=== PATIENT | male | born 1970 | race African-American/Black ===

== ENCOUNTER 2018-01-10 20:46 | Emergency (ER) | payer SELFPAY ==
[2018-01-10] MEDS ORDERED: HYDROcodone/Acetaminophen 5/325 mg Tablet ONE (21:44)
== END 2018-01-10 21:49 | disposition home or self-care (01) ==
LOC: SCSER 20:46
DX: L02.416 Cutaneous abscess of left lower limb (principal); Z71.6 Tobacco abuse counseling; J45.909 Unspecified asthma, uncomplicated; F17.210 Nicotine dependence, cigarettes, uncomplicated
CPT/HCPCS: 99406

== ENCOUNTER 2023-01-29 16:57 | Emergency (ER) | payer SELFPAY ==
[2023-01-29 19:24] LABS: SARS-CoV-2 NAA Rapid Test Not Detected (NotDetected)
== END 2023-01-29 18:35 | disposition home or self-care (01) ==
LOC: ERS 16:57
DX: R05.9 Cough, unspecified (principal); F17.210 Nicotine dependence, cigarettes, uncomplicated; Z20.822 Contact with and (suspected) exposure to COVID-19
CPT/HCPCS: 71046